=== PATIENT | female | born 2000 | race African-American/Black ===

== ENCOUNTER 2022-03-05 17:37 | Inpatient (IN) ==
--- NOTE | 2022-03-05 18:14 | Emergency Department Note ---
Impression & Plan Suicide attempt by multiple drug overdose, Depression ED Provider Note NAME: BARNEY MORRIS AGE: 21 SEX: F : 2000 ARRIVES VIA: Walk-In INFORMANT: Patient, the patient's mother ED PROVIDER(S): Misael Cervantes DO CHIEF COMPLAINT: Overdose HPI: The patient is a 21-year-old female who presented to the emergency department with her mother for an evaluation after an overdose. The patient took medications in attempt to hurt her self. This occurred approximately 2 PM today. She is been very depressed recently. She had a recent break-up with her boyfriend 2 days ago but she states this is not the reason she has been depressed. She states that everybody is "judging me". She is very depressed. She said no history of suicidal homicidal ideation in the past. She has had no nausea or vomiting since the episode. She is had no fever. She is been well recently otherwise. She does have a job and has been going to her job. She als o states she has had significant insomnia. She is never had a mental health admission before. She does have a psychiatrist. ROS: See above HPI for pertinent positives & negatives. A total of 10 systems reviewed and were otherwise negative. PAST MEDICAL HISTORY: See Below PAST SURGICAL HISTORY: See Below FAMILY HISTORY: See Below SOCIAL HISTORY: See Below HOME MEDICATIONS: See Below ALLERGIES: See Below VITALS: See Below PHYSICAL EXAMINATION: GENERAL: The patient is awake and alert. She is nonanxious appearing. EYES: The conjunctivae are clear. The pupils are round and reactive. EARS, NOSE, MOUTH AND THROAT: The nose is without any evidence of any deformity. NECK: The neck is nontender and supple. RESPIRATORY: Normal respiratory effort is noted there is no evidence of wheezing rhonchi or rales CARDIOVASCULAR: Regular rate and rhythm noted there no murmurs rubs or gallops normal S1 normal S2. GASTROINTESTINAL: The abdomen is soft. Abdomen is nontender. MUSCULOSKELETAL/EXTREMITIES: There is no evidence of gross deformity full range of motion is noted in the hips and shoulders. SKIN: There is no obvious evidence of any rash. There are no petechiae, pallor or cyanosis noted. NEUROLOGIC: Patient is awake alert and oriented x3 strength is symmetric patellar reflexes are 2+ bilaterally PSYCH: The patient's affect is very flat. She makes poor eye contact. The patient is admitting to thoughts of harming herself and admits to taking the medications in attempt to hurt her self. MEDICAL DECISION MAKING: The patient is a 21-year-old female who presented to the emergency department for an evaluation of mental health issues. The patient took an overdose of prescription medications. The patient was reevaluated multiple times. I did discuss patient's condition with the [facility] Control [facility]. They were observed for a period of time in the emergency department. Repeat EKG was very reassuring. The patient was medically cleared in the emergency department. She was evaluated by the mental health porter sample case. Currently evaluation is underway. Likely patient will be a good candidate for inpatient management. Triage Nursing notes reviewed. Prior medical records reviewed Vital Signs: reviewed and remarkable for no significant abnormalities Differential diagnosis: Mood disorder, infection, hypoglycemia, electrolyte abnormalities, cardiac sources, intracerebral event, toxicologic, trauma, neurologic, as well as other pathologies. ER treatment provided: See below Diagnostics interpreted by me: ECG: EKG was obtained in the emergency department. My interpretation is normal sinus rhythm at 94 bpm. There is no ectopy. There is no acute ST segment abnormalities noted. QTc was 465. QRS duration was 82 ms. A second EKG was obtained in the emergency department. My interpretation is normal sinus rhythm at 90 bpm. There is no ectopy. There is no acute ST segment abnormalities noted. QRS duration was 82 ms. QTc was 457 ms. This represents no significant change compared to the earlier tracing. Laboratory studies: As stated above and show below. Imaging studies: See below. Consultation(s): The case was discussed with poison control. They recommend a 5 to 6-hour observation from the time of the overdose. The patient was evaluated by the delegate from [facility]. She was felt to be a good candidate for inpatient management. Past Med/Surg History Medical History ADHD GERD (gastroesophageal reflux disease) PTSD (post-traumatic stress disorder) Social History Smoking Status: Unknown if ever smoked Preferred Language: Serbian Feels Safe at Home: Yes Gender Identity: Female Home Meds Home Medications Medication Instructions Recorded Confirmed atomoxetine 100 mg capsule 100 mg PO QAM 03/05/22 03/05/22 (Strattera) omeprazole 20 mg capsule,delayed 20 mg PO DAILY 03/05/22 03/05/22 release Results & Data (ED) Vital Signs Vital Signs - 24 hr 03/05/22 17:39 03/05/22 18:15 03/05/22 20:16 Temperature 36.9 C Temperature Source Temporal Artery Scan Pulse Rate 117 H Pulse Rate [Right Finger] 99 H Respiratory Rate 16 22 Blood Pressure 128/80 Blood Pressure [Right Arm] 125/76 Blood Pressure Mean 96 Blood Pressure Mean [Right Arm] 92 Blood Pressure Position [Right Arm] Lying Pulse Oximetry 99 98 98 Oxygen Delivery Method Room Air Room Air Oxygen Flow Rate 0 Sepsis Recent Fever Within 48 Hours No Sepsis New/Unexplained Change in Mental Status N/A Sepsis Action Taken by Nursing No Action Required Home Medications Current Medication List: was personally reviewed by me Laboratory Data Attestation: I reviewed the patient's lab results. 03/05/22 18:10 03/05/22 18:10 Lab Results 03/05/22 03/05/22 03/05/22 Range/Units 18:00 18:00 18:00 WBC (4.8-10.8) K/ul RBC (3.93-5.22) M/uL Hgb (12.0-16.0) g/dl Hct (34.1-44.9) % MCV (80.0-100.0) fL MCH (25.0-34.0) pg MCHC (32.0-36.0) g/dL RDW Std Deviation (36.4-46.3) fL RDW Coeff of Radha (11.5-14.5) % Plt Count (130-400) K/uL MPV (9.4-12.3) fL Immature Gran % (Auto) % Neut % (Auto) % Lymph % (Auto) % [place] % (Auto) % Eos % (Auto) % Baso % (Auto) % Neut # (Auto) (1.4-6.5) K/uL Lymph # (Auto) (1.2-3.4) K/uL [place] # (Auto) (0.24-0.82) K/uL Eos # (Auto) (0-0.50) K/uL Baso # (Auto) (0-0.2) K/uL Immature Gran # (Auto) (0.00-0.02) K/uL Sodium (136-145) mmol/L Potassium (3.5-5.1) mmol/L Chloride (98-107) mmol/L Carbon Dioxide (21-32) mmol/L Anion Gap (3-11) BUN (6-23) mg/dl Creatinine (0.6-1.2) mg/dl Est Cr Clr Drug Dosing ml/min Est GFR ( Amer) ml/min Est GFR (Non-Af Amer) ml/min BUN/Creatinine Ratio (10-20) Glucose (70-99(Fasting)) mg/dl Calcium (8.5-10.1) mg/dl Total Bilirubin (0.2-1.0) mg/dl AST (13-39) U/L ALT (7-52) U/L Alkaline Phosphatase (34-104) U/L Total Protein (6.0-8.3) gm/dl Albumin (3.4-5.0) gm/dl Globulin (2.5-4.0) gm/dl Albumin/Globulin Ratio (0.9-2) TSH (0.300-4.500) uIu/ml HCG, Qual (Negative) Urine Color Dark Yellow Urine Appearance Clear (Clear) Urine pH 6.0 (4.5-7.5) Ur Specific [place] 1.034 H (1.000-1.030) Urine Protein Trace H (Negative) Urine Glucose (UA) Negative (Negative) Urine Ketones Trace H (Negative) Urine Blood Negative (Negative) Urine Nitrite Negative (Negative) Urine Bilirubin Negative (Negative) Urine Urobilinogen Negative (Negative) Ur Leukocyte Esterase Negative (Negative) Urine WBC (Auto) 5-10 H (0-5) /hpf Urine RBC (Auto) 0-4 (0-4) /hpf U Hyaline Cast (Auto) 1-5 (0-5) /lpf U Epithel Cells (Auto) >30 H (0-5) /lpf Urine Bacteria (Auto) Negative (Negative) POC Ur Test NEG (NEG) Salicylates (3.0-30) mg/dl Urine Opiates Screen Pos H (Neg) Ur Methadone, Qual Neg (Neg) Acetaminophen (10-30) ug/ml Urine Barbiturates Neg (Neg) Ur Phencyclidine (PCP) Neg (Neg) U Amphetamin/Meth Scrn Neg (Neg) MDMA (Ecstasy) Screen Neg (Neg) U Benzodiazepines Scrn Neg (Neg) Ur Cocaine Metabolite Neg (Neg) U Marijuana (THC) Screen Neg (Neg) Ethyl Alcohol mg/dL (<10.0) mg/dl SARS-CoV-2, RNA, NAAT (NEGATIVE) 03/05/22 03/05/22 03/05/22 Range/Units 18:10 18:10 18:10 WBC 8.36 (4.8-10.8) K/ul RBC 4.55 (3.93-5.22) M/uL Hgb 12.5 (12.0-16.0) g/dl Hct 38.8 (34.1-44.9) % MCV 85.3 (80.0-100.0) fL MCH 27.5 (25.0-34.0) pg MCHC 32.2 (32.0-36.0) g/dL RDW Std Deviation 40.4 (36.4-46.3) fL RDW Coeff of Radha 13.0 (11.5-14.5) % Plt Count 228 (130-400) K/uL MPV 10.8 (9.4-12.3) fL Immature Gran % (Auto) 0.2 % Neut % (Auto) 73.6 % Lymph % (Auto) 21.3 % [place] % (Auto) 3.3 % Eos % (Auto) 1.1 % Baso % (Auto) 0.5 % Neut # (Auto) 6.15 (1.4-6.5) K/uL Lymph # (Auto) 1.78 (1.2-3.4) K/uL [place] # (Auto) 0.28 (0.24-0.82) K/uL Eos # (Auto) 0.09 (0-0.50) K/uL Baso # (Auto) 0.04 (0-0.2) K/uL Immature Gran # (Auto) 0.02 (0.00-0.02) K/uL Sodium 137 (136-145) mmol/L Potassium 3.8 (3.5-5.1) mmol/L Chloride 107 (98-107) mmol/L Carbon Dioxide 25 (21-32) mmol/L Anion Gap 5 (3-11) BUN 12 (6-23) mg/dl Creatinine 0.66 (0.6-1.2) mg/dl Est Cr Clr Drug Dosing 108.3 ml/min Est GFR ( Amer) 145.3 ml/min Est GFR (Non-Af Amer) 125.4 ml/min BUN/Creatinine Ratio 18.2 (10-20) Glucose 91 (70-99(Fasting)) mg/dl Calcium 9.0 (8.5-10.1) mg/dl Total Bilirubin 0.7 (0.2-1.0) mg/dl AST 9 L (13-39) U/L ALT 7 (7-52) U/L Alkaline Phosphatase 64 (34-104) U/L Total Protein 7.8 (6.0-8.3) gm/dl Albumin 4.8 (3.4-5.0) gm/dl Globulin 3.0 (2.5-4.0) gm/dl Albumin/Globulin Ratio 1.6 (0.9-2) TSH 1.520 (0.300-4.500) uIu/ml HCG, Qual (Negative) Urine Color Urine Appearance (Clear) Urine pH (4.5-7.5) Ur Specific [place] (1.000-1.030) Urine Protein (Negative) Urine Glucose (UA) (Negative) Urine Ketones (Negative) Urine Blood (Negative) Urine Nitrite (Negative) Urine Bilirubin (Negative) Urine Urobilinogen (Negative) Ur Leukocyte Esterase (Negative) Urine WBC (Auto) (0-5) /hpf Urine RBC (Auto) (0-4) /hpf U Hyaline Cast (Auto) (0-5) /lpf U Epithel Cells (Auto) (0-5) /lpf Urine Bacteria (Auto) (Negative) POC Ur Test (NEG) Salicylates (3.0-30) mg/dl Urine Opiates Screen (Neg) Ur Methadone, Qual (Neg) Acetaminophen (10-30) ug/ml Urine Barbiturates (Neg) Ur Phencyclidine (PCP) (Neg) U Amphetamin/Meth Scrn (Neg) MDMA (Ecstasy) Screen (Neg) U Benzodiazepines Scrn (Neg) Ur Cocaine Metabolite (Neg) U Marijuana (THC) Screen (Neg) Ethyl Alcohol mg/dL (<10.0) mg/dl SARS-CoV-2, RNA, NAAT (NEGATIVE) 03/05/22 03/05/22 03/05/22 Range/Units 18:10 18:10 18:10 WBC (4.8-10.8) K/ul RBC (3.93-5.22) M/uL Hgb (12.0-16.0) g/dl Hct (34.1-44.9) % MCV (80.0-100.0) fL MCH (25.0-34.0) pg MCHC (32.0-36.0) g/dL RDW Std Deviation (36.4-46.3) fL RDW Coeff of Radha (11.5-14.5) % Plt Count (130-400) K/uL MPV (9.4-12.3) fL Immature Gran % (Auto) % Neut % (Auto) % Lymph % (Auto) % [place] % (Auto) % Eos % (Auto) % Baso % (Auto) % Neut # (Auto) (1.4-6.5) K/uL Lymph # (Auto) (1.2-3.4) K/uL [place] # (Auto) (0.24-0.82) K/uL Eos # (Auto) (0-0.50) K/uL Baso # (Auto) (0-0.2) K/uL Immature Gran # (Auto) (0.00-0.02) K/uL Sodium (136-145) mmol/L Potassium (3.5-5.1) mmol/L Chloride (98-107) mmol/L Carbon Dioxide (21-32) mmol/L Anion Gap (3-11) BUN (6-23) mg/dl Creatinine (0.6-1.2) mg/dl Est Cr Clr Drug Dosing ml/min Est GFR ( Amer) ml/min Est GFR (Non-Af Amer) ml/min BUN/Creatinine Ratio (10-20) Glucose (70-99(Fasting)) mg/dl Calcium (8.5-10.1) mg/dl Total Bilirubin (0.2-1.0) mg/dl AST (13-39) U/L ALT (7-52) U/L Alkaline Phosphatase (34-104) U/L Total Protein (6.0-8.3) gm/dl Albumin (3.4-5.0) gm/dl Globulin (2.5-4.0) gm/dl Albumin/Globulin Ratio (0.9-2) TSH (0.300-4.500) uIu/ml HCG, Qual Negative (Negative) Urine Color Urine Appearance (Clear) Urine pH (4.5-7.5) Ur Specific [place] (1.000-1.030) Urine Protein (Negative) Urine Glucose (UA) (Negative) Urine Ketones (Negative) Urine Blood (Negative) Urine Nitrite (Negative) Urine Bilirubin (Negative) Urine Urobilinogen (Negative) Ur Leukocyte Esterase (Negative) Urine WBC (Auto) (0-5) /hpf Urine RBC (Auto) (0-4) /hpf U Hyaline Cast (Auto) (0-5) /lpf U Epithel Cells (Auto) (0-5) /lpf Urine Bacteria (Auto) (Negative) POC Ur Test (NEG) Salicylates < 3.0 L (3.0-30) mg/dl Urine Opiates Screen (Neg) Ur Methadone, Qual (Neg) Acetaminophen < 3 L (10-30) ug/ml Urine Barbiturates (Neg) Ur Phencyclidine (PCP) (Neg) U Amphetamin/Meth Scrn (Neg) MDMA (Ecstasy) Screen (Neg) U Benzodiazepines Scrn (Neg) Ur Cocaine Metabolite (Neg) U Marijuana (THC) Screen (Neg) Ethyl Alcohol mg/dL < 10.0 (<10.0) mg/dl SARS-CoV-2, RNA, NAAT (NEGATIVE) 03/05/22 Range/Units 18:10 WBC (4.8-10.8) K/ul RBC (3.93-5.22) M/uL Hgb (12.0-16.0) g/dl Hct (34.1-44.9) % MCV (80.0-100.0) fL MCH (25.0-34.0) pg MCHC (32.0-36.0) g/dL RDW Std Deviation (36.4-46.3) fL RDW Coeff of Radha (11.5-14.5) % Plt Count (130-400) K/uL MPV (9.4-12.3) fL Immature Gran % (Auto) % Neut % (Auto) % Lymph % (Auto) % [place] % (Auto) % Eos % (Auto) % Baso % (Auto) % Neut # (Auto) (1.4-6.5) K/uL Lymph # (Auto) (1.2-3.4) K/uL [place] # (Auto) (0.24-0.82) K/uL Eos # (Auto) (0-0.50) K/uL Baso # (Auto) (0-0.2) K/uL Immature Gran # (Auto) (0.00-0.02) K/uL Sodium (136-145) mmol/L Potassium (3.5-5.1) mmol/L Chloride (98-107) mmol/L Carbon Dioxide (21-32) mmol/L Anion Gap (3-11) BUN (6-23) mg/dl Creatinine (0.6-1.2) mg/dl Est Cr Clr Drug Dosing ml/min Est GFR ( Amer) ml/min Est GFR (Non-Af Amer) ml/min BUN/Creatinine Ratio (10-20) Glucose (70-99(Fasting)) mg/dl Calcium (8.5-10.1) mg/dl Total Bilirubin (0.2-1.0) mg/dl AST (13-39) U/L ALT (7-52) U/L Alkaline Phosphatase (34-104) U/L Total Protein (6.0-8.3) gm/dl Albumin (3.4-5.0) gm/dl Globulin (2.5-4.0) gm/dl Albumin/Globulin Ratio (0.9-2) TSH (0.300-4.500) uIu/ml HCG, Qual (Negative) Urine Color Urine Appearance (Clear) Urine pH (4.5-7.5) Ur Specific [place] (1.000-1.030) Urine Protein (Negative) Urine Glucose (UA) (Negative) Urine Ketones (Negative) Urine Blood (Negative) Urine Nitrite (Negative) Urine Bilirubin (Negative) Urine Urobilinogen (Negative) Ur Leukocyte Esterase (Negative) Urine WBC (Auto) (0-5) /hpf Urine RBC (Auto) (0-4) /hpf U Hyaline Cast (Auto) (0-5) /lpf U Epithel Cells (Auto) (0-5) /lpf Urine Bacteria (Auto) (Negative) POC Ur Test (NEG) Salicylates (3.0-30) mg/dl Urine Opiates Screen (Neg) Ur Methadone, Qual (Neg) Acetaminophen (10-30) ug/ml Urine Barbiturates (Neg) Ur Phencyclidine (PCP) (Neg) U Amphetamin/Meth Scrn (Neg) MDMA (Ecstasy) Screen (Neg) U Benzodiazepines Scrn (Neg) Ur Cocaine Metabolite (Neg) U Marijuana (THC) Screen (Neg) Ethyl Alcohol mg/dL (<10.0) mg/dl SARS-CoV-2, RNA, NAAT NEGATIVE (NEGATIVE) Discharge Plan Visit Data Chief Complaint: Mental Health Evaluation Stated Complaint: OVERDOSE, INTENTIONAL ED Provider: Misael Cervantes Discharge Problem: Suicide attempt by multiple drug overdose, Depression Patient Disposition: Admitted As Inpatient Discharge Instructions Interventions: ED Discharge Assessment Last Done: 03/05/22 22:11 : Suicide attempt by multiple drug overdose Qualifiers: Encounter type: initial encounter Qualified Code(s): T50.912A - Poisoning by multiple unspecified drugs, medicaments and biological substances, intentional self-harm, initial encounter Depression Qualifiers: Depression Type: unspecified Qualified Code(s): F32.A - Depression, unspecified
[2022-03-05 18:24] LABS: Appearance Urine Clear (Clear); Bacteria Urine Automated Negative (Negative); Bilirubin Urine Negative (Negative); Blood Urine Negative (Negative); Color Urine Dark Yellow; Epithelial Cell Urine Auto >30 /lpf (0-5); Glucose Urine UA Negative (Negative); Ketones Urine Trace (Negative); Leukocyte Esterase Urine Negative (Negative); Nitrite Urine Negative (Negative); Protein Urine Trace (Negative); RBC Urine Automated 0-4 /hpf (0-4); Specific Gravity Urine 1.034 (1.000-1.030); Urobilinogen Urine Negative (Negative)
[2022-03-05 18:24] LABS: Basophils # (auto) 0.04 K/uL (0-0.2); Basophils % (auto) 0.5 %; Eosinophils # (auto) 0.09 K/uL (0-0.50); Eosinophils % (auto) 1.1 %; Hematocrit (blood only) 38.8 % (34.1-44.9); Hemoglobin 12.5 g/dl (12.0-16.0); Immature Granulocytes # (auto) 0.02 K/uL (0.00-0.02); Immature Granulocytes % (auto) 0.2 %; Lymphocytes # (auto) 1.78 K/uL (1.2-3.4); Lymphocytes % (auto) 21.3 %; Mean Corpuscular Hemoglobin 27.5 pg (25.0-34.0); Mean Corpuscular Hgb Conc 32.2 g/dL (32.0-36.0); Mean Corpuscular Volume 85.3 fL (80.0-100.0); Mean Platelet Volume 10.8 fL (9.4-12.3); Monocytes # (auto) 0.28 K/uL (0.24-0.82); Monocytes % (auto) 3.3 %; Neutrophils # (auto) 6.15 K/uL (1.4-6.5); Neutrophils % (auto) 73.6 %; Platelet Count 228 K/uL (130-400); RDW Standard Deviation 40.4 fL (36.4-46.3); Red Blood Count 4.55 M/uL (3.93-5.22); White Blood Count 8.36 K/ul (4.8-10.8)
[2022-03-05 18:41] LABS: Pregnancy Test, Serum Negative (Negative)
[2022-03-05 18:43] LABS: Acetaminophen < 3 ug/ml (10-30); Albumin Globulin Ratio 1.6 (0.9-2); Albumin Level 4.8 gm/dl (3.4-5.0); BUN Creatinine Ratio 18.2 (10-20); Bilirubin,Total 0.7 mg/dl (0.2-1.0); Creatinine Clr Calc Pharmacy 108.3 ml/min; Est GFR (African American) 145.3 ml/min; Est GFR (Non-African American) 125.4 ml/min; Potassium 3.8 mmol/L (3.5-5.1); Salicylate < 3.0 mg/dl (3.0-30); Total Protein 7.8 gm/dl (6.0-8.3)
[2022-03-05 18:53] LABS: Amphetamines+Metham, Urine Neg (Neg); Barbiturates, Urine Neg (Neg); Benzodiazepine, Urine Neg (Neg); Cocaine, Urine Neg (Neg); MDMA (Ecstacy), Urine Neg (Neg); Methadone, Urine Neg (Neg); Opiate, Urine Pos (Neg); Phencyclidine, Urine Neg (Neg)
[2022-03-05] MEDS ORDERED: ACETAMINOPHEN 325 MG TAB PO PRN (21:49)
[2022-03-05] MEDS ORDERED: BISMUTH SUBSALICYLATE LIQD 236 ML PO PRN (21:49)
[2022-03-05] MEDS ORDERED: SODIUM CHLORIDE 0.65% NA SOLN 45 ML (OCEAN) PRN (21:49)
[2022-03-05] MEDS ORDERED: MAGNESIUM HYDROXIDE SUSP 30 ML UDC PO PRN (21:49)
[2022-03-05] MEDS ORDERED: ALUMINUM/MAGNESIUM SUSP 30 ML UDC PO PRN (21:49)
[2022-03-05] MEDS ORDERED: hydrOXYzine HCl 25 MG TAB PO PRN ×2 (21:49)
--- NOTE | 2022-03-06 10:51 | History & Physical ---
Date of Service March 06, 2022 Impression / Recommendations Impression Barney is a 21 year old with a history of ADHD, ASD and PTSD who was admitted for worsening depression and suicide attempt in the context of recent breakup, increased stress and an argument with her mother. Diagnostically consistent with major depressive disorder with anxious features as well as PTSD and social anxiety. She is deemed unstable and requires psychiatric hospitalization for diagnostic clarification, safety and stabilization, medication management and development of further coping skills. Will hold Strattera for now given overdose. Likely consider SSRI versus Wellbutrin trial. (1) Suicide attempt by multiple drug overdose: Encounter type: initial encounter Qualified Code(s): T50.912A - Poisoning by multiple unspecified drugs, medicaments and biological substances, intentional self-harm, initial encounter (2) Major depression: (3) Post traumatic stress disorder (PTSD): (4) ADHD: (5) Autism spectrum disorder: Plan 03/06/2022: The patient was admitted to the [facility] ([facility] mental health unit) on q15 min checks (behavioral with suicide precautions) for safety. The patient will participate in group, recreational, and milieu therapies and will be offered additional individual and family sessions as clinically appropriate. -Consider SSRI vs Wellbutrin -Coordinate with Dr. Baxter -Request [facility] records to confirm any prior medication trials Inventory Assets Strengths: supportive relationships, willing to get treatment, good rapport with her outpatient psychiatrist Needs: safety and stabilization, medication adjustment, additional coping skills, increased outpatient services Suicide Risk Level Suicide Risk Level: High-Moderate (q15 min suicide checks) (severe depression with suicide attempt prior to admission but feels safe in the hospital, able to safety contract and agrees to let nursing/staff know should they develop plan, i ntent or feel unable to remain safe. 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 Chief Complaint "I'm basically overthinking too much on things and pushing myself too hard". History of Present Illness Barney presents for psychiatric admission for worsening depression and suicide attempt via overdose of ~6 tabs of Strattera and ~3 tabs of omeprazole as well as self-harming via cutting her arm with a knife. She broke up with her boyfri end 2 days ago and wonders if this in combination with too much stress and arguing with her mom lead to the attempt. She recalls having "visions" of jumping out of her boyfriend's car, or cutting herself or taking medications which started yesterday. The suicide thoughts and plans came on abruptly as she's never had these thoughts before. She recalls "a feeling of being cornered and all these emotions all at once". She had looked up what might happen if she took a bunch of her medications but denies finding or thinking that it could kill her. She recalls watching TV and then her mother yelled at her for having the candy bag on the ground where the dog could get it and then "that's when I had the visions" and cut herself with a kitchen knife and took the medications noting "I just acted and didn't think about taking them". After taking them she laid down and then texted her mom when she felt ill and came to the ED. She hasn't felt like herself recently, with anhedonia and more "walker". She identifies worsening mood over the last few months with hopelessness, lack of motivation, low energy, changes in sleep (excessive alternating with insomnia), decreased appetite, and increased irritability. She's also felt more anxious recently and worries about what other people think about her and "things I'm doing wrong". Expands that she doesn't feel like she's doing enough. Endorses so cial anxiety. No history of panic attacks. She is currently prescribed any Strattera for ADHD for a few years. She thinks it works "ok" and helps with concentration. Psychiatric ROS notable for no current nor history of symptoms of phil, psychosis, OCD, eating disorder nor self-harm. Past Psychiatric History Current Psychiatric Diagnosis: PTSD, ADHD, ASD Outpatient Services: Dr. baxter at [facility] for psychiatry, hx therapy last 1 year ago but not currently Previous Psych Admissions: n/a Do You Have Access To A Gun?: No History of Previous Suicide Attempt: No Past Medication Trials: she can't remember any except Strattera Past Head Trauma/Neuro History History of Concussion/Seizure: No Allergies Allergy/AdvReac Type Severity Reaction Status Date / Time No Known Allergies Allergy Verified 03/06/22 10:35 Home Medications Medication Instructions Recorded Confirmed Type atomoxetine 100 mg capsule 100 mg PO QAM 03/05/22 03/05/22 History (Strattera) omeprazole 20 mg capsule,delayed 20 mg PO DAILY 03/05/22 03/05/22 History release Family History Family History of: Doesn't Know (adopted) Alcohol History Hx of Alcohol Use Over the Past 12 Months: No AUDIT Total Score: 0 Smoking Use Have You Smoked or Used Tobacco Products in the Last 30 Days: No Smoking Status: Never smoker Substance History Hx of Prescription Med Misuse Over the Past 12 Months: Yes (Overdosed on her medications today) Hx of Over the Counter Med Misuse Over the Past 12 Months: No Hx of Inhalent Misuse Over the Past 12 Months: No Hx of Organic Substance Use Over the Past 12 Months: No Hx of Illegal Substances/Street Drug Use Over Past 12 Months: No Problems as a Result of Past Substance Use: Attempted Suicide Personal History Living Arrangements: Home Childhood: 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 Has a good relationship with her adoptive parents. 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 Required: No Beliefs That Will Affect Care: None Feels Safe at Home: Yes Gender Identity: Female Assistive Devices: Glasses Review of Systems Review of Systems: All systems reviewed & are unremarkable except as noted in HPI & below Physical Exam Psychiatric: Orientation: alert and oriented x 3 Apperance: appropriately dressed and appropriately groomed Eye Contact: + fair eye contact Motor Behavior: no abnormal motor movements Speech: + abnormal rate/rhythm/volume of speech (soft, brief) Affect: + depressed affect and + anxious affect Mood: + depressed mood and + anxious mood Thought Process: goal directed thought process Thought Content: reality based without delusions Suicidal Thoughts: denies suicidal plan and denies suicidal intent; + reports suicidal thoughts (denies currently but s/p suicide attempt) Homicidal Thoughts: denies homicidal thoughts Hallucinations: no auditory hallucinations and no visual hallucinations Cognition: recent memory grossly intact, remote memory grossly intact, attention grossly intact and language grossly intact Estimated Intelligence: consistent with education level Insight: + limited insight Judgement: + limited judgement Vital Signs (Past 24 Hours): Last Vital Signs Temp 36.8 C 03/06/22 06:43 Pulse 120 H 03/06/22 06:44 Resp 16 03/06/22 06:43 BP 144/82 H 03/06/22 06:44 Pulse Ox 99 03/05/22 22:28 O2 Del Method 03/05/22 22:28 O2 Flow Rate 0 03/05/22 18:15 Exam Statement: A physical exam was performed in the ED by Dr. Cervantes for the purposes of medical clearance. I accept that physical as correct and adequate for the purposes of the inpatient physical exam. Results & Data ([facility]) Laboratory Results Laboratory Results - last 24 hr 03/05/22 03/05/22 03/05/22 18:00 18:00 18:00 WBC RBC Hgb Hct MCV MCH MCHC RDW Std Deviation RDW Coeff of Radha Plt Count MPV Immature Gran % (Auto) Neut % (Auto) Lymph % (Auto) [place] % (Auto) Eos % (Auto) Baso % (Auto) Neut # (Auto) Lymph # (Auto) [place] # (Auto) Eos # (Auto) Baso # (Auto) Immature Gran # (Auto) Sodium Potassium Chloride Carbon Dioxide Anion Gap BUN Creatinine Est Cr Clr Drug Dosing Est GFR ( Amer) Est GFR (Non-Af Amer) BUN/Creatinine Ratio Glucose Calcium Total Bilirubin AST ALT Alkaline Phosphatase Total Protein Albumin Globulin Albumin/Globulin Ratio TSH HCG, Qual Urine Color Dark Yellow Urine Appearance Clear Urine pH 6.0 Ur Specific [place] 1.034 H Urine Protein Trace H Urine Glucose (UA) Negative Urine Ketones Trace H Urine Blood Negative Urine Nitrite Negative Urine Bilirubin Negative Urine Urobilinogen Negative Ur Leukocyte Esterase Negative Urine WBC (Auto) 5-10 H Urine RBC (Auto) 0-4 U Hyaline Cast (Auto) 1-5 U Epithel Cells (Auto) >30 H Urine Bacteria (Auto) Negative POC Ur Test NEG Salicylates Urine Opiates Screen Pos H U Codeine Confrm GC/MS Ur Morphine (GC/MS) Ur Hydrocodone (GC/MS) Ur Norhydrocodone Ur Noroxycodone Urine Oxycodone (GC/MS) U Oxymorphone GC/MS Ur Methadone, Qual Neg Ur Hydromorphone (GC/MS) Acetaminophen Urine Barbiturates Neg Ur Phencyclidine (PCP) Neg U Amphetamin/Meth Scrn Neg MDMA (Ecstasy) Screen Neg U Benzodiazepines Scrn Neg Ur Cocaine Metabolite Neg U Marijuana (THC) Screen Neg Drug Screen Comment Ethyl Alcohol mg/dL SARS-CoV-2, RNA, NAAT 03/05/22 03/05/22 03/05/22 18:00 18:10 18:10 WBC 8.36 RBC 4.55 Hgb 12.5 Hct 38.8 MCV 85.3 MCH 27.5 MCHC 32.2 RDW Std Deviation 40.4 RDW Coeff of Radha 13.0 Plt Count 228 MPV 10.8 Immature Gran % (Auto) 0.2 Neut % (Auto) 73.6 Lymph % (Auto) 21.3 [place] % (Auto) 3.3 Eos % (Auto) 1.1 Baso % (Auto) 0.5 Neut # (Auto) 6.15 Lymph # (Auto) 1.78 [place] # (Auto) 0.28 Eos # (Auto) 0.09 Baso # (Auto) 0.04 Immature Gran # (Auto) 0.02 Sodium 137 Potassium 3.8 Chloride 107 Carbon Dioxide 25 Anion Gap 5 BUN 12 Creatinine 0.66 Est Cr Clr Drug Dosing 108.3 Est GFR ( Amer) 145.3 Est GFR (Non-Af Amer) 125.4 BUN/Creatinine Ratio 18.2 Glucose 91 Calcium 9.0 Total Bilirubin 0.7 AST 9 L ALT 7 Alkaline Phosphatase 64 Total Protein 7.8 Albumin 4.8 Globulin 3.0 Albumin/Globulin Ratio 1.6 TSH HCG, Qual Urine Color Urine Appearance Urine pH Ur Specific [place] Urine Protein Urine Glucose (UA) Urine Ketones Urine Blood Urine Nitrite Urine Bilirubin Urine Urobilinogen Ur Leukocyte Esterase Urine WBC (Auto) Urine RBC (Auto) U Hyaline Cast (Auto) U Epithel Cells (Auto) Urine Bacteria (Auto) POC Ur Test Salicylates Urine Opiates Screen U Codeine Confrm GC/MS Pending Ur Morphine (GC/MS) Pending Ur Hydrocodone (GC/MS) Pending Ur Norhydrocodone Pending Ur Noroxycodone Pending Urine Oxycodone (GC/MS) Pending U Oxymorphone GC/MS Pending Ur Methadone, Qual Ur Hydromorphone (GC/MS) Pending Acetaminophen Urine Barbiturates Ur Phencyclidine (PCP) U Amphetamin/Meth Scrn MDMA (Ecstasy) Screen U Benzodiazepines Scrn Ur Cocaine Metabolite U Marijuana (THC) Screen Drug Screen Comment Pending Ethyl Alcohol mg/dL SARS-CoV-2, RNA, NAAT 03/05/22 03/05/22 03/05/22 18:10 18:10 18:10 WBC RBC Hgb Hct MCV MCH MCHC RDW Std Deviation RDW Coeff of Radha Plt Count MPV Immature Gran % (Auto) Neut % (Auto) Lymph % (Auto) [place] % (Auto) Eos % (Auto) Baso % (Auto) Neut # (Auto) Lymph # (Auto) [place] # (Auto) Eos # (Auto) Baso # (Auto) Immature Gran # (Auto) Sodium Potassium Chloride Carbon Dioxide Anion Gap BUN Creatinine Est Cr Clr Drug Dosing Est GFR ( Amer) Est GFR (Non-Af Amer) BUN/Creatinine Ratio Glucose Calcium Total Bilirubin AST ALT Alkaline Phosphatase Total Protein Albumin Globulin Albumin/Globulin Ratio TSH 1.520 HCG, Qual Urine Color Urine Appearance Urine pH Ur Specific [place] Urine Protein Urine Glucose (UA) Urine Ketones Urine Blood Urine Nitrite Urine Bilirubin Urine Urobilinogen Ur Leukocyte Esterase Urine WBC (Auto) Urine RBC (Auto) U Hyaline Cast (Auto) U Epithel Cells (Auto) Urine Bacteria (Auto) POC Ur Test Salicylates < 3.0 L Urine Opiates Screen U Codeine Confrm GC/MS Ur Morphine (GC/MS) Ur Hydrocodone (GC/MS) Ur Norhydrocodone Ur Noroxycodone Urine Oxycodone (GC/MS) U Oxymorphone GC/MS Ur Methadone, Qual Ur Hydromorphone (GC/MS) Acetaminophen < 3 L Urine Barbiturates Ur Phencyclidine (PCP) U Amphetamin/Meth Scrn MDMA (Ecstasy) Screen U Benzodiazepines Scrn Ur Cocaine Metabolite U Marijuana (THC) Screen Drug Screen Comment Ethyl Alcohol mg/dL < 10.0 SARS-CoV-2, RNA, NAAT 03/05/22 03/05/22 18:10 18:10 WBC RBC Hgb Hct MCV MCH MCHC RDW Std Deviation RDW Coeff of Radha Plt Count MPV Immature Gran % (Auto) Neut % (Auto) Lymph % (Auto) [place] % (Auto) Eos % (Auto) Baso % (Auto) Neut # (Auto) Lymph # (Auto) [place] # (Auto) Eos # (Auto) Baso # (Auto) Immature Gran # (Auto) Sodium Potassium Chloride Carbon Dioxide Anion Gap BUN Creatinine Est Cr Clr Drug Dosing Est GFR ( Amer) Est GFR (Non-Af Amer) BUN/Creatinine Ratio Glucose Calcium Total Bilirubin AST ALT Alkaline Phosphatase Total Protein Albumin Globulin Albumin/Globulin Ratio TSH HCG, Qual Negative Urine Color Urine Appearance Urine pH Ur Specific [place] Urine Protein Urine Glucose (UA) Urine Ketones Urine Blood Urine Nitrite Urine Bilirubin Urine Urobilinogen Ur Leukocyte Esterase Urine WBC (Auto) Urine RBC (Auto) U Hyaline Cast (Auto) U Epithel Cells (Auto) Urine Bacteria (Auto) POC Ur Test Salicylates Urine Opiates Screen U Codeine Confrm GC/MS Ur Morphine (GC/MS) Ur Hydrocodone (GC/MS) Ur Norhydrocodone Ur Noroxycodone Urine Oxycodone (GC/MS) U Oxymorphone GC/MS Ur Methadone, Qual Ur Hydromorphone (GC/MS) Acetaminophen Urine Barbiturates Ur Phencyclidine (PCP) U Amphetamin/Meth Scrn MDMA (Ecstasy) Screen U Benzodiazepines Scrn Ur Cocaine Metabolite U Marijuana (THC) Screen Drug Screen Comment Ethyl Alcohol mg/dL SARS-CoV-2, RNA, NAAT NEGATIVE Current Inpatient Medications Current Inpatient Medications: Current Inpatient Medications Acetaminophen (Acetaminophen 325 Mg Tab) 650 mg PO Q4H PRN PRN Reason: Headache or Minor Fever Stop: 04/04/22 21:48 Al Hydrox/Mg Hydrox/Simethicone (Aluminum/Magnesium Susp 30 Ml Udc) 30 ml PO Q4H PRN PRN Reason: GI Upset Stop: 04/04/22 21:48 Bismuth Subsalicylate (Bismuth Subsalicylate Liqd 236 Ml) 15 ml PO PRN PRN PRN Reason: Loose Stool Stop: 04/04/22 21:48 Hydroxyzine HCl (Hydroxyzine Hcl 25 Mg Tab) 50 mg PO HSZ PRN PRN Reason: Insomnia Stop: 04/04/22 21:48 Hydroxyzine HCl (Hydroxyzine Hcl 25 Mg Tab) 25 mg PO Q4H PRN PRN Reason: Anxiety Stop: 04/04/22 21:48 Magnesium Hydroxide (Magnesium Hydroxide Susp 30 Ml Udc) 30 ml PO DAILY PRN PRN Reason: Constipation Stop: 04/04/22 21:48 Sodium Chloride (Sodium Chloride 0.65% Na Soln 45 Ml ([place])) 1 - 2 sprays NA PRN PRN PRN Reason: Nasal Dryness/Congestion Stop: 04/04/22 21:48
--- NOTE | 2022-03-06 14:54 | Electrocardiogram Report ---
Test Reason : Blood Pressure : / mmHG Vent. Rate : 090 BPM Atrial Rate : 090 BPM P-R Int : 132 ms QRS Dur : 082 ms QT Int : 374 ms P-R-T Axes : 064 058 039 degrees QTc Int : 457 ms Poor data quality, interpretation may be adversely affected Normal sinus rhythm Normal ECG When compared with ECG of 05-MAR-2022 18:03, No significant change was found Confirmed by Bebo Finch ([id number]) on 03/06/2022 2:53:57 PM Referred By: REFERRED SELF Confirmed By:Bebo Finch
--- NOTE | 2022-03-06 14:54 | Electrocardiogram Report ---
Test Reason : Blood Pressure : / mmHG Vent. Rate : 094 BPM Atrial Rate : 094 BPM P-R Int : 122 ms QRS Dur : 082 ms QT Int : 372 ms P-R-T Axes : 056 048 029 degrees QTc Int : 465 ms Poor data quality, interpretation may be adversely affected Normal sinus rhythm Normal ECG When compared with ECG of 29-NOV-2012 18:13, No significant change Confirmed by Bebo Finch ([id number]) on 03/06/2022 2:53:48 PM Referred By: REFERRED SELF Confirmed By:Bebo Finch
--- NOTE | 2022-03-07 08:48 | Psychiatric Progress Note ---
Date of Service March 07, 2022 Impression / Recommendations Jose M Heard is a 21 year old with a history of ADHD, ASD and PTSD who was admitted for worsening depression and suicide attempt in the context of recent breakup, increased stress and an argument with her mother. Diagnostically consistent with major depressive disorder with anxious features as well as PTSD and social anxiety. She is deemed unstable and requires psychiatric hospitalization for diagnostic clarification, safety and stabilization, medication management and development of further coping skills. 03/07/21: Ongoing depression and anxiety but started to attend groups and less isolative today. Discussed with her outpatient provider Dr. Baxter who noted past medication trials of Trileptal, risperidone in childhood for aggressive behaviors with ASD and then stimulant trials in the past but caused activation and hx trazodone for sleep. In childhood developed prolonged QTc on risperidone but never since then. Re-reviewed EKG from ED notable for normal QTc on Strattera. Discussed medication treatment options in detail. Discussed risks, benefits and alternatives. Patient would like to start and consented to sertraline for depression and anxiety. Reviewed side effects including but not limited to: GI, DU, sexual side effects, and counseled on black box warning of potential for emergence of or increased SI and need to let staff know should this occur or should they feel unsafe. Also discussed importance of seeking emergency care following discharge if this side effect occurs in the future. Reviewed recommend that we will check EKG QTc in a few days after starting sertraline to ensure no prolongation since sertraline can cause QTc prolongation but felt to be safe given good tolerance of SNRI use with Strattera with no changes. Overall, I spent a total of 53 minutes with this case including review of EKG QTc, direct evaluation of the patient, counseling the patient, ordering medication, discussion of the patient with nurse and social work specialist at interdisciplinary rounds, discussion with her outpatient psychiatric provider and documentation in the electronic health record. (1) Suicide attempt by multiple drug overdose: (2) Major depression: (3) Post traumatic stress disorder (PTSD): (4) ADHD: (5) Autism spectrum disorder: Plan 03/07/22: Start sertraline 25mg qd. 03/06/2022: The patient was admitted to the [facility] ([facility] mental health unit) on q15 min checks (behavioral with suicide precautions) for safety. The patient will participate in group, recreational, and milieu therapies and will be offered additional individual and family sessions as clinically appropriate. -Consider SSRI vs Wellbutrin -Coordinate with Dr. Baxter -Request [facility] records to confirm any prior medication trials Inventory Assets Strengths: supportive relationships, willing to get treatment, good rapport with her outpatient psychiatrist Needs: safety and stabilization, medication adjustment, additional coping skills, increased outpatient services Suicide Risk Level Suicide Risk Level: High-Moderate (q15 min suicide checks) (severe depression with suicide attempt prior to admission but feels safe in the hospital, able to safety contract and agrees to let nursing/staff know should they develop plan, intent or feel unable to remain safe. 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 Chief Complaint "It was that the depression built over many months, it wasn't just one thing". Review of Systems Sleep Information Total Hours of Sleep: 7.5 Sleep Comments: patient denied anything to help with sleep- layed in bed awake all night Meal Information Percent Meal Consumed - Breakfast: 0 Percent Meal Consumed - Lunch: 100 Percent Meal Consumed - Dinner: 90 Subjective Subjective Patient was seen & assessed and interval progress reviewed with treatment team nursing and social work. Going to groups but not participating. Isolative to her room between groups. Reports her mood is "ok" today. Slept well last night. Interested in trying an SSRI. Adjusting to unit more, pleased her family dropped off her stuffed animal. Processed more about her relationship breakup, identified that her ex-boyfriend "made me feel like everything was my fault and I was a bad person a lot". Discussed how to identify healthy relationships and what productive arguing in relationships versus unhealthy arguing can look like. Physical Exam Psychiatric Orientation: alert and oriented x 3 Apperance: appropriately dressed and appropriately groomed Eye Contact: + poor eye contact Motor Behavior: no abnormal motor movements Speech: + abnormal rate/rhythm/volume of speech (soft, brief) Affect: + depressed affect and + anxious affect Mood: + depressed mood and + anxious mood Thought Process: goal directed thought process Thought Content: reality based without delusions Suicidal Thoughts: denies suicidal plan and denies suicidal intent; + reports suicidal thoughts (denies currently but s/p suicide attempt) Homicidal Thoughts: denies homicidal thoughts Hallucinations: no auditory hallucinations and no visual hallucinations Cognition: recent memory grossly intact, remote memory grossly intact, attention grossly intact and language grossly intact Estimated Intelligence: consistent with education level Insight: + limited insight Judgement: + limited judgement Vital Signs (Past 24 Hours) Last Vital Signs Temp 37.1 C 03/07/22 06:36 Pulse 120 H 03/07/22 06:36 Resp 16 03/07/22 06:36 BP 119/73 03/07/22 06:36 Pulse Ox 99 03/05/22 22:28 O2 Del Method 03/05/22 22:28 O2 Flow Rate 0 03/05/22 18:15 Results & Data ([facility]) Current Inpatient Medications Current Inpatient Medications: Current Inpatient Medications Acetaminophen (Acetaminophen 325 Mg Tab) 650 mg PO Q4H PRN PRN Reason: Headache or Minor Fever Stop: 04/04/22 21:48 Al Hydrox/Mg Hydrox/Simethicone (Aluminum/Magnesium Susp 30 Ml Udc) 30 ml PO Q4H PRN PRN Reason: GI Upset Stop: 04/04/22 21:48 Bismuth Subsalicylate (Bismuth Subsalicylate Liqd 236 Ml) 15 ml PO PRN PRN PRN Reason: Loose Stool Stop: 04/04/22 21:48 Hydroxyzine HCl (Hydroxyzine Hcl 25 Mg Tab) 50 mg PO HSZ PRN PRN Reason: Insomnia Stop: 04/04/22 21:48 Hydroxyzine HCl (Hydroxyzine Hcl 25 Mg Tab) 25 mg PO Q4H PRN PRN Reason: Anxiety Stop: 04/04/22 21:48 Magnesium Hydroxide (Magnesium Hydroxide Susp 30 Ml Udc) 30 ml PO DAILY PRN PRN Reason: Constipation Stop: 04/04/22 21:48 Sodium Chloride (Sodium Chloride 0.65% Na Soln 45 Ml ([place])) 1 - 2 sprays NA PRN PRN PRN Reason: Nasal Dryness/Congestion Stop: 04/04/22 21:48 Mental Health & Subst Abuse Tx Psychiatrist Name of Psychiatrist: Viridiana- Dr. Baxter Psychiatrist's Time of Appointment with Psychiatrist: 9:30am Psychiatric Appointment Comment: via Zoom Therapist Name of Therapist: Made referral to [facility] Medical Staff Services Coordinator Name of Medical Staff Services Coordinator: None Post Discharge Appointments Primary Care Physician Name Of Family Doctor/PCP: Yahir-will be seeing Dr. Carias Primary Care Time of Appointment with PCP: 10am Provider Appointment Comment: Tj Yang, [place] Contact Information Discharge Discharge Address: [facility] [address] [place] [address] (1) Suicide attempt by multiple drug overdose Encounter type: initial encounter Qualified Code(s): T50.912A - Poisoning by multiple unspecified drugs, medicaments and biological substances, intentional self-harm, initial encounter
[2022-03-07] MEDS: SERTRALINE HCL 50 MG TABLET PO SCH (12:53)
[2022-03-08] MEDS: SERTRALINE HCL 50 MG TABLET PO SCH (09:04)
--- NOTE | 2022-03-08 09:04 | Psychiatric Progress Note ---
Date of Service March 08, 2022 Impression / Recommendations Impression Barney is a 21 year old with a history of ADHD, ASD and PTSD who was admitted for worsening depression and suicide attempt in the context of recent breakup, increased stress and an argument with her mother. Diagnostically consistent with major depressive disorder with anxious features as well as PTSD and social anxiety. She is deemed unstable and requires psychiatric hospitalization for diagnostic clarification, safety and stabilization, medication management and development of further coping skills. 03/08/21: Ongoing depression and anxiety but making progress. Tolerating initiation of sertraline, consents to dose titration. Will get EKG in 1-2 days once at 50mg to assess QTc given history of prolonged QTc. Family meeting today. (1) Suicide attempt by multiple drug overdose: (2) Major depression: (3) Post traumatic stress disorder (PTSD): (4) ADHD: (5) Autism spectrum disorder: Plan 03/08/22: Increase sertraline to 50mg qd. 03/07/22: Start sertraline 25mg qd. 03/06/2022: The patient was admitted to the [facility] ([facility] mental health unit) on q15 min checks (behavioral with suicide precautions) for safety. The patient will participate in group, recreational, and milieu therapies and will be offered additional individual and family sessions as clinically appropriate. -Consider SSRI vs Wellbutrin -Coordinate with Dr. Baxter -Request [facility] records to confirm any prior medication trials Inventory Assets Strengths: supportive relationships, willing to get treatment, good rapport with her outpatient psychiatrist Needs: safety and stabilization, medication adjustment, additional coping skills, increased outpatient services Suicide Risk Level Suicide Risk Level: High-Moderate (q15 min suicide checks) (severe depression with suicide attempt prior to admission but feels safe in the hospital, able to safety contract and agrees to let nursing/staff know should they develop plan, intent or feel unable to remain safe. 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 Chief Complaint "The medication is helping a little bit". Review of Systems Sleep Information Total Hours of Sleep: 7 Sleep Comments: patient denied anything to help with sleep- layed in bed awake all night Meal Information Percent Meal Consumed - Breakfast: 0 Percent Meal Consumed - Lunch: 100 Percent Meal Consumed - Dinner: 100 Subjective Subjective Patient was seen & assessed and interval progress reviewed with treatment team nursing and social work. Mood remains with depression. Feels the medication is starting to help her a little bit with the depression. Attending groups. Denies any medication side effects, agreeable to dose titration. Family meeting today. Physical Exam Psychiatric Orientation: alert and oriented x 3 Apperance: appropriately dressed and appropriately groomed Eye Contact: + poor eye contact Motor Behavior: no abnormal motor movements Speech: + abnormal rate/rhythm/volume of speech (soft, brief) Affect: + depressed affect and + anxious affect Mood: + depressed mood and + anxious mood Thought Process: goal directed thought process Thought Content: reality based without delusions Suicidal Thoughts: denies suicidal plan and denies suicidal intent; + reports suicidal thoughts (denies currently but s/p suicide attempt) Homicidal Thoughts: denies homicidal thoughts Hallucinations: no auditory hallucinations and no visual hallucinations Cognition: recent memory grossly intact, remote memory grossly intact, attention grossly intact and language grossly intact Estimated Intelligence: consistent with education level Insight: + limited insight Judgement: + limited judgement Vital Signs (Past 24 Hours) Last Vital Signs Temp 37.1 C 03/08/22 06:29 Pulse 108 H 03/08/22 06:29 Resp 18 03/08/22 06:29 BP 117/74 03/08/22 06:31 Pulse Ox 99 03/05/22 22:28 O2 Del Method 03/05/22 22:28 O2 Flow Rate 0 03/05/22 18:15 Results & Data ([facility]) Current Inpatient Medications Current Inpatient Medications: Current Inpatient Medications Acetaminophen (Acetaminophen 325 Mg Tab) 650 mg PO Q4H PRN PRN Reason: Headache or Minor Fever Stop: 04/04/22 21:48 Al Hydrox/Mg Hydrox/Simethicone (Aluminum/Magnesium Susp 30 Ml Udc) 30 ml PO Q4H PRN PRN Reason: GI Upset Stop: 04/04/22 21:48 Bismuth Subsalicylate (Bismuth Subsalicylate Liqd 236 Ml) 15 ml PO PRN PRN PRN Reason: Loose Stool Stop: 04/04/22 21:48 Hydroxyzine HCl (Hydroxyzine Hcl 25 Mg Tab) 50 mg PO HSZ PRN PRN Reason: Insomnia Stop: 04/04/22 21:48 Hydroxyzine HCl (Hydroxyzine Hcl 25 Mg Tab) 25 mg PO Q4H PRN PRN Reason: Anxiety Stop: 04/04/22 21:48 Magnesium Hydroxide (Magnesium Hydroxide Susp 30 Ml Udc) 30 ml PO DAILY PRN PRN Reason: Constipation Stop: 04/04/22 21:48 Sertraline HCl (Sertraline Hcl 50 Mg Tablet) 25 mg PO QAM ABBEY Stop: 04/06/22 12:44 Last Admin: 03/07/22 12:53 Dose: 25 mg Sodium Chloride (Sodium Chloride 0.65% Na Soln 45 Ml ([place])) 1 - 2 sprays NA PRN PRN PRN Reason: Nasal Dryness/Congestion Stop: 04/04/22 21:48 Mental Health & Subst Abuse Tx Psychiatrist Name of Psychiatrist: Viridiana- Dr. Baxter Psychiatrist's Time of Appointment with Psychiatrist: 9:30am Psychiatric Appointment Comment: via Zoom Therapist Name of Therapist: Viridiana- on waiting list for therapy Change Consultant Name of Change Consultant: None Post Discharge Appointments Primary Care Physician Name Of Family Doctor/PCP: Yahir-will be seeing Dr. Carias Primary Care Time of Appointment with PCP: 10am Provider Appointment Comment: Tj Yang, [place] Contact Information Discharge Discharge Address: [address] [place] [address] Julian Epp[place], [place] [address] (1) Suicide attempt by multiple drug overdose Encounter type: initial encounter Qualified Code(s): T50.912A - Poisoning by multiple unspecified drugs, medicaments and biological substances, intentional self-harm, initial encounter
[2022-03-08 10:12] LABS: Codeine Urine NEGATIVE ng/mL (<50); Hydrocodone Urine NEGATIVE ng/mL (<50); Hydromor Urine NEGATIVE ng/mL (<50); Morphine Urine NEGATIVE ng/mL (<50); Norhydrocodone Conf Ur NEGATIVE ng/mL (<50); Noroxycodone Urine NEGATIVE ng/mL (<50); Oxycodone Urine NEGATIVE ng/mL (<50); Oxymorph Urine NEGATIVE ng/mL (<50)
[2022-03-09] MEDS: SERTRALINE HCL 50 MG TABLET PO SCH (08:54)
--- NOTE | 2022-03-09 16:37 | Psychiatric Progress Note ---
Date of Service March 09, 2022 Impression / Recommendations Impression Barney is a 21 year old with a history of ADHD, ASD and PTSD who was admitted for worsening depression and suicide attempt in the context of recent breakup, increased stress and an argument with her mother. Diagnostically consistent with major depressive disorder with anxious features as well as PTSD and social anxiety. She is deemed unstable and requires psychiatric hospitalization for diagnostic clarification, safety and stabilization, medication management and development of further coping skills. 03/09/21: Ongoing depression and anxiety but making gradual progress. Tolerating higher dose of sertraline today. Will get EKG in 1-2 days once at 50mg to assess QTc given history of prolonged QTc. Family meeting today. (1) Suicide attempt by multiple drug overdose: (2) Major depression: (3) Post traumatic stress disorder (PTSD): (4) ADHD: (5) Autism spectrum disorder: Plan 03/09/22: Continue with sertraline 50mg qd. 03/08/22: Increase sertraline to 50mg qd. 03/07/22: Start sertraline 25mg qd. 03/06/2022: The patient was admitted to the [facility] ([facility] mental health unit) on q15 min checks (behavioral with suicide precautions) for safety. The patient will participate in group, recreational, and milieu therapies and will be offered additional individual and family sessions as clinically appropriate. -Consider SSRI vs Wellbutrin -Coordinate with Dr. Baxter -Request [facility] records to confirm any prior medication trials Inventory Assets Strengths: supportive relationships, willing to get treatment, good rapport with her outpatient psychiatrist Needs: safety and stabilization, medication adjustment, additional coping skills, increased outpatient services Suicide Risk Level Suicide Risk Level: Moderate (q15 min suicide checks) (depression with suicide attempt prior to admission but mood improving, denies SI, feels safe in the hospital, able to safety contract and agrees to let nursing/staff know should they develop plan, intent or feel unable to remain safe. 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 Chief Complaint "The medication is helping". Review of Systems Sleep Information Total Hours of Sleep: 6.5 Sleep Comments: patient denied anything to help with sleep- layed in bed awake all night Meal Information Percent Meal Consumed - Breakfast: 0 Percent Meal Consumed - Lunch: 80 Percent Meal Consumed - Dinner: 90 Nutrition Comment: pt. does not typically eat breakfast Subjective Subjective Patient was seen & assessed and interval progress reviewed with treatment team nursing and social work. Mood slowly improving. No side effects from higher dose of sertraline today. Likes doing puzzles and attending groups but remains quiet. Discussed her job, she isn't sure about working after discharge. 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 Sleeping well. Physical Exam Psychiatric Orientation: alert and oriented x 3 Apperance: appropriately dressed and appropriately groomed Eye Contact: + poor eye contact Motor Behavior: no abnormal motor movements Speech: + abnormal rate/rhythm/volume of speech (soft, brief) Affect: + depressed affect Mood: + depressed mood and + anxious mood Thought Process: goal directed thought process Thought Content: reality based without delusions Suicidal Thoughts: denies suicidal thoughts (denies currently but s/p suicide attempt), denies suicidal plan and denies suicidal intent Homicidal Thoughts: denies homicidal thoughts Hallucinations: no auditory hallucinations and no visual hallucinations Cognition: recent memory grossly intact, remote memory grossly intact, attention grossly intact and language grossly intact Estimated Intelligence: consistent with education level Insight: + limited insight Judgement: + limited judgement Vital Signs (Past 24 Hours) Last Vital Signs Temp 37.0 C 03/09/22 06:39 Pulse 94 H 03/09/22 06:39 Resp 16 03/09/22 06:39 BP 113/76 03/09/22 06:40 Pulse Ox 98 03/09/22 06:39 O2 Del Method 03/09/22 06:39 O2 Flow Rate 0 03/05/22 18:15 Results & Data ([facility]) Current Inpatient Medications Current Inpatient Medications: Current Inpatient Medications Acetaminophen (Acetaminophen 325 Mg Tab) 650 mg PO Q4H PRN PRN Reason: Headache or Minor Fever Stop: 04/04/22 21:48 Al Hydrox/Mg Hydrox/Simethicone (Aluminum/Magnesium Susp 30 Ml Udc) 30 ml PO Q4H PRN PRN Reason: GI Upset Stop: 04/04/22 21:48 Bismuth Subsalicylate (Bismuth Subsalicylate Liqd 236 Ml) 15 ml PO PRN PRN PRN Reason: Loose Stool Stop: 04/04/22 21:48 Hydroxyzine HCl (Hydroxyzine Hcl 25 Mg Tab) 50 mg PO HSZ PRN PRN Reason: Insomnia Stop: 04/04/22 21:48 Hydroxyzine HCl (Hydroxyzine Hcl 25 Mg Tab) 25 mg PO Q4H PRN PRN Reason: Anxiety Stop: 04/04/22 21:48 Magnesium Hydroxide (Magnesium Hydroxide Susp 30 Ml Udc) 30 ml PO DAILY PRN PRN Reason: Constipation Stop: 04/04/22 21:48 Sertraline HCl (Sertraline Hcl 50 Mg Tablet) 50 mg PO QAM ABBEY Stop: 04/08/22 08:59 Last Admin: 03/09/22 08:54 Dose: 50 mg Sodium Chloride (Sodium Chloride 0.65% Na Soln 45 Ml ([place])) 1 - 2 sprays NA PRN PRN PRN Reason: Nasal Dryness/Congestion Stop: 04/04/22 21:48 Mental Health & Subst Abuse Tx Psychiatrist Name of Psychiatrist: Sonia Baxter Psychiatrist's Time of Appointment with Psychiatrist: 9:30am Psychiatric Appointment Comment: via Zoom Therapist Name of Therapist: Viridiana- on waiting list for therapy Dairy Equipment Specialist Name of Dairy Equipment Specialist: None Post Discharge Appointments Primary Care Physician Name Of Family Doctor/PCP: Yahir-will be seeing Dr. Carias Primary Care Time of Appointment with PCP: 10am Provider Appointment Comment: Tj Yang, [place] Contact Information Discharge Discharge Address: [address] [place] [address] [place], [place] [address] (1) Suicide attempt by multiple drug overdose Encounter type: initial encounter Qualified Code(s): T50.912A - Poisoning by multiple unspecified drugs, medicaments and biological substances, intentional self-harm, initial encounter
[2022-03-10] MEDS: SERTRALINE HCL 50 MG TABLET PO SCH (09:06)
--- NOTE | 2022-03-10 12:37 | Psychiatric Progress Note ---
Date of Service March 10, 2022 Impression / Recommendations Impression Barney is a 21 year old with a history of ADHD, ASD and PTSD who was admitted for worsening depression and suicide attempt in the context of recent breakup, increased stress and an argument with her mother. Diagnostically consistent with major depressive disorder with anxious features as well as PTSD and social anxiety. She is deemed unstable and requires psychiatric hospitalization for diagnostic clarification, safety and stabilization, medication management and development of further coping skills. 03/10/21: Mood is improving. Recheck EKG this evening to assess QTc and ensure it remains normal on higher dose of sertraline (now has received 2 doses of 50mg) given history of prolonged QTc during childhood while on risperidone. (1) Suicide attempt by multiple drug overdose: (2) Major depression: (3) Post traumatic stress disorder (PTSD): (4) ADHD: (5) Autism spectrum disorder: Plan 03/10/22: Continue with sertraline. EKG this evening to assess QTc. 03/09/22: Continue with sertraline 50mg qd. 03/08/22: Increase sertraline to 50mg qd. 03/07/22: Start sertraline 25mg qd. 03/06/2022: The patient was admitted to the [facility] ([facility]) on q15 min checks (behavioral with suicide precautions) for safety. The patient will participate in group, recreational, and milieu therapies and will be offered additional individual and family sessions as clinically appropriate. -Consider SSRI vs Wellbutrin -Coordinate with Dr. Baxter -Request [facility] records to confirm any prior medication trials Inventory Assets Strengths: supportive relationships, willing to get treatment, good rapport with her outpatient psychiatrist Needs: safety and stabilization, medication adjustment, additional coping skills, increased outpatient services Suicide Risk Level Suicide Risk Level: Moderate (q15 min suicide checks) (depression with suicide attempt prior to admission but mood improving, denies SI, feels safe in the hospital, able to safety contract and agrees to let nursing/staff know should they develop plan, intent or feel unable to remain safe. 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 Chief Complaint "I'm good, a little tired". Review of Systems Sleep Information Total Hours of Sleep: 9.25 Sleep Comments: Meal Information Percent Meal Consumed - Breakfast: 0 Percent Meal Consumed - Lunch: 80 Percent Meal Consumed - Dinner: 100 Nutrition Comment: pt. does not typically eat breakfast Subjective Subjective Patient was seen & assessed and interval progress reviewed with treatment team nursing and social work. Attending and engaging in groups. Mood is good. Denies SI. Likes the sertraline, no side effects from higher dose. Agrees to EKG later today. Denies any questions or concerns. Physical Exam Psychiatric Orientation: alert and oriented x 3 Apperance: appropriately dressed and appropriately groomed Eye Contact: + poor eye contact Motor Behavior: no abnormal motor movements Speech: + abnormal rate/rhythm/volume of speech (soft, brief) Affect: + constricted affect Mood: no depressed mood and no anxious mood Thought Process: goal directed thought process Thought Content: reality based without delusions Suicidal Thoughts: denies suicidal thoughts, denies suicidal plan and denies suicidal intent Homicidal Thoughts: denies homicidal thoughts Hallucinations: no auditory hallucinations and no visual hallucinations Cognition: recent memory grossly intact, remote memory grossly intact, attention grossly intact and language grossly intact Estimated Intelligence: consistent with education level Insight: + fair insight Judgement: + fair judgement Vital Signs (Past 24 Hours) Last Vital Signs Temp 37 C 03/10/22 06:55 Pulse 96 H 03/10/22 06:55 Resp 16 03/10/22 06:55 BP 117/77 03/10/22 06:55 Pulse Ox 98 03/09/22 06:39 O2 Del Method 03/09/22 06:39 O2 Flow Rate 0 03/05/22 18:15 Results & Data ([facility]) Current Inpatient Medications Current Inpatient Medications: Current Inpatient Medications Acetaminophen (Acetaminophen 325 Mg Tab) 650 mg PO Q4H PRN PRN Reason: Headache or Minor Fever Stop: 04/04/22 21:48 Al Hydrox/Mg Hydrox/Simethicone (Aluminum/Magnesium Susp 30 Ml Udc) 30 ml PO Q4H PRN PRN Reason: GI Upset Stop: 04/04/22 21:48 Bismuth Subsalicylate (Bismuth Subsalicylate Liqd 236 Ml) 15 ml PO PRN PRN PRN Reason: Loose Stool Stop: 04/04/22 21:48 Hydroxyzine HCl (Hydroxyzine Hcl 25 Mg Tab) 50 mg PO HSZ PRN PRN Reason: Insomnia Stop: 04/04/22 21:48 Hydroxyzine HCl (Hydroxyzine Hcl 25 Mg Tab) 25 mg PO Q4H PRN PRN Reason: Anxiety Stop: 04/04/22 21:48 Magnesium Hydroxide (Magnesium Hydroxide Susp 30 Ml Udc) 30 ml PO DAILY PRN PRN Reason: Constipation Stop: 04/04/22 21:48 Sertraline HCl (Sertraline Hcl 50 Mg Tablet) 50 mg PO QAM ABBEY Stop: 04/08/22 08:59 Last Admin: 03/10/22 09:06 Dose: 50 mg Sodium Chloride (Sodium Chloride 0.65% Na Soln 45 Ml ([place])) 1 - 2 sprays NA PRN PRN PRN Reason: Nasal Dryness/Congestion Stop: 04/04/22 21:48 Mental Health & Subst Abuse Tx Psychiatrist Name of Psychiatrist: Sonia Baxter Psychiatrist's Time of Appointment with Psychiatrist: 9:30am Psychiatric Appointment Comment: via Zoom Therapist Name of Therapist: Viridiana- on waiting list for therapy Auto [employer] 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 Carias Primary Care Time of Appointment with PCP: 10am Provider Appointment Comment: Tj Yang, MONA Winters Contact Information Discharge Discharge Address: [address] [place] [address] Julian Epperson, [place] [id number] (1) Suicide attempt by multiple drug overdose Encounter type: initial encounter Qualified Code(s): T50.912A - Poisoning by multiple unspecified drugs, medicaments and biological substances, intentional self-harm, initial encounter
[2022-03-11] MEDS: SERTRALINE HCL 50 MG TABLET PO SCH (09:20)
--- NOTE | 2022-03-11 10:08 | Discharge Summary ---
Date of Service March 11, 2022 History of Present Illness Orquidea presents for psychiatric admission for worsening depression and suicide attempt via overdose of ~6 tabs of Strattera and ~3 tabs of omeprazole as well as self-harming via cutting her arm with a knife. She broke up with her boyfriend 2 days ago and wonders if this in combination with too much stress and arguing with her mom lead to the attempt. She recalls having "visions" of jumping out of her boyfriend's car, or cutting herself or taking medications which started yesterday. The suicide thoughts and plans came on abruptly as she's never had these thoughts before. She recalls "a feeling of being cornered and all these emotions all at once". She had looked up what might happen if she took a bunch of her medications but denies finding or thinking that it could kill her. She recalls watching TV and then her mother yelled at her for having the candy bag on the ground where the dog could get it and then "that's when I had the visions" and cut herself with a kitchen knife and took the medications noting "I just acted and didn't think about taking them". After taking them she laid down and then texted her mom when she felt ill and came to the ED. She hasn't felt like herself recently, with anhedonia and more "walker". She identifies worsening mood over the last few months with hopelessness, lack of motivation, low energy, changes in sleep (excessive alternating with insomnia), decreased appetite, and increased irritability. She's also felt more anxious recently and worries about what other people think about her and "things I'm doing wrong". Expands that she doesn't feel like she's doing enough. Endorses social anxiety. No history of panic attacks. She is currently prescribed any Strattera for ADHD for a few years. She thinks it works "ok" and helps with concentration. Psychiatric ROS notable for no current nor history of symptoms of phil, psychosis, OCD, eating disorder nor self-harm. Physical Exam Vital Signs (Past 24 Hours) Last Vital Signs Temp 37.2 C 03/11/22 06:49 Pulse 102 H 03/11/22 06:50 Resp 16 03/11/22 06:49 BP 112/77 03/11/22 06:50 Pulse Ox 98 03/09/22 06:39 O2 Del Method 03/09/22 06:39 O2 Flow Rate 0 03/05/22 18:15 See admission H&P and DOD summary. Principal Diagnosis Major Depressive Disorder with anxious distress Psychiatric Data See daily stay summary. In short, patient was engaged with the social/therapeutic milieu of the unit, safety was maintained and the patient was cooperative with care. Medication changes included discontinuation of Strattera and initiation of sertraline for depression/anxiety and Vistaril prn for ins omnia and they tolerated this well. Given her history of prolonged QTc during childhood EKG was done after 2 days on sertraline 50mg and notable for normal QTc. A family session was held and safety plan was completed prior to discharge. She actively and insightfully participated in safety planning and in discussions about ways to seek support and recognizing warning signs and utilizing coping sk ills. Reviewed importance of seeking emergency care should SI intensify, worsen or should they feel unsafe in the future which they agree to do. On the day of discharge she stated her mood was "pretty good" and remained future-oriented including spending time with her family, having a [employer] movie marathon with family friends and engaging in aftercare appointments for psychiatry and eventually therapy. Day of Discharge Assessment Today the patient voices readiness for discharge. They note improvement in mood and anxiety. They deny thoughts of harm to self or others. Thoughts are organized and they are clinically improved from admission. There is no evidence of psychosis. They improved in the hospital with support and medication adjustm ents. They agree to take medications as prescribed and keep follow-up appointments. At the time of the discharge they are deemed to be stable and appropriate for outpatient level of care. They are not deemed to be at imminent risk of harm to self or others. They are aware of emergency and crisis services. Knows to call 911 or go to nearest emergency care center if in a crisis which cannot be handled as an outpatient. Transition of Care Transition Of Care Record: was reviewed with the patient Advance Directives Advance Directives Information Provided: Yes Advance Directives: No Mental Health Advance Directive: No Advance Directives on File: No Living Will: No Power of Notch Machine Operator: No Advance Directives Reason:: Declines as Mental Health Visit. Suicide Risk Level Suicide Risk Level Comments: Acute risk is low given improvement in mood and denial of SI, lack of access to lethal means, improvement in sleep, hopefulness and lessening of anxiety. Chronic risk is moderate given some non-modifiable risk factors: psychiatric co- morbid diagnoses, periods of impulsivity, prior attempt, emotional reactivity, limited social support, childhood trauma but also with protective factors including: strong family support, sense of responsibility to family and social supports, outpatient care in place, positive coping skills, positive problem solving, capacity to establish therapeutic alliance, willingness to engage with treatment, capacity for self-observation. Counseled on ways to reduce acute and chronic risk including engaging with outpatient providers (including therapy once off the waitlist), using [facility] resources to find a job/social media job titles, using safety plan if needed, utilizing supports, taking medication, and using coping skills. Modifiable risk factors of SI, anxiety and depression were addressed during hospitalization through development of new coping skills, family meeting, safety planning, and medication adjustments. 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 Relationships: Yes Supportive Family: Yes Good Rapport with Provider: Yes Discharge Data Lab Results 03/05/22 03/05/22 03/05/22 18:00 18:00 18:00 WBC RBC Hgb Hct MCV MCH MCHC RDW Std Deviation RDW Coeff of Radha Plt Count MPV Immature Gran % (Auto) Neut % (Auto) Lymph % (Auto) [place] % (Auto) Eos % (Auto) Baso % (Auto) Neut # (Auto) Lymph # (Auto) [place] # (Auto) Eos # (Auto) Baso # (Auto) Immature Gran # (Auto) Sodium Potassium Chloride Carbon Dioxide Anion Gap BUN Creatinine Est Cr Clr Drug Dosing Est GFR ( Amer) Est GFR (Non-Af Amer) BUN/Creatinine Ratio Glucose Calcium Total Bilirubin AST ALT Alkaline Phosphatase Total Protein Albumin Globulin Albumin/Globulin Ratio TSH HCG, Qual Urine Color Dark Yellow Urine Appearance Clear Urine pH 6.0 Ur Specific [place] 1.034 H Urine Protein Trace H Urine Glucose (UA) Negative Urine Ketones Trace H Urine Blood Negative Urine Nitrite Negative Urine Bilirubin Negative Urine Urobilinogen Negative Ur Leukocyte Esterase Negative Urine WBC (Auto) 5-10 H Urine RBC (Auto) 0-4 U Hyaline Cast (Auto) 1-5 U Epithel Cells (Auto) >30 H Urine Bacteria (Auto) Negative POC Ur Test NEG Salicylates Urine Opiates Screen Pos H U Codeine Confrm GC/MS Ur Morphine (GC/MS) Ur Hydrocodone (GC/MS) Ur Norhydrocodone Ur Noroxycodone Urine Oxycodone (GC/MS) U Oxymorphone GC/MS Ur Methadone, Qual Neg Ur Hydromorphone (GC/MS) Acetaminophen Urine Barbiturates Neg Ur Phencyclidine (PCP) Neg U Amphetamin/Meth Scrn Neg MDMA (Ecstasy) Screen Neg U Benzodiazepines Scrn Neg Ur Cocaine Metabolite Neg U Marijuana (THC) Screen Neg Drug Screen Comment Ethyl Alcohol mg/dL SARS-CoV-2, RNA, NAAT 03/05/22 03/05/22 03/05/22 18:00 18:10 18:10 WBC 8.36 RBC 4.55 Hgb 12.5 Hct 38.8 MCV 85.3 MCH 27.5 MCHC 32.2 RDW Std Deviation 40.4 RDW Coeff of Radha 13.0 Plt Count 228 MPV 10.8 Immature Gran % (Auto) 0.2 Neut % (Auto) 73.6 Lymph % (Auto) 21.3 [place] % (Auto) 3.3 Eos % (Auto) 1.1 Baso % (Auto) 0.5 Neut # (Auto) 6.15 Lymph # (Auto) 1.78 [place] # (Auto) 0.28 Eos # (Auto) 0.09 Baso # (Auto) 0.04 Immature Gran # (Auto) 0.02 Sodium 137 Potassium 3.8 Chloride 107 Carbon Dioxide 25 Anion Gap 5 BUN 12 Creatinine 0.66 Est Cr Clr Drug Dosing 108.3 Est GFR ( Amer) 145.3 Est GFR (Non-Af Amer) 125.4 BUN/Creatinine Ratio 18.2 Glucose 91 Calcium 9.0 Total Bilirubin 0.7 AST 9 L ALT 7 Alkaline Phosphatase 64 Total Protein 7.8 Albumin 4.8 Globulin 3.0 Albumin/Globulin Ratio 1.6 TSH HCG, Qual Urine Color Urine Appearance Urine pH Ur Specific [place] Urine Protein Urine Glucose (UA) Urine Ketones Urine Blood Urine Nitrite Urine Bilirubin Urine Urobilinogen Ur Leukocyte Esterase Urine WBC (Auto) Urine RBC (Auto) U Hyaline Cast (Auto) U Epithel Cells (Auto) Urine Bacteria (Auto) POC Ur Test Salicylates Urine Opiates Screen U Codeine Confrm GC/MS NEGATIVE Ur Morphine (GC/MS) NEGATIVE Ur Hydrocodone (GC/MS) NEGATIVE Ur Norhydrocodone NEGATIVE Ur Noroxycodone NEGATIVE Urine Oxycodone (GC/MS) NEGATIVE U Oxymorphone GC/MS NEGATIVE Ur Methadone, Qual Ur Hydromorphone (GC/MS) NEGATIVE Acetaminophen Urine Barbiturates Ur Phencyclidine (PCP) U Amphetamin/Meth Scrn MDMA (Ecstasy) Screen U Benzodiazepines Scrn Ur Cocaine Metabolite U Marijuana (THC) Screen Drug Screen Comment SEE NOTE Ethyl Alcohol mg/dL SARS-CoV-2, RNA, NAAT 03/05/22 03/05/22 03/05/22 18:10 18:10 18:10 WBC RBC Hgb Hct MCV MCH MCHC RDW Std Deviation RDW Coeff of Radha Plt Count MPV Immature Gran % (Auto) Neut % (Auto) Lymph % (Auto) [place] % (Auto) Eos % (Auto) Baso % (Auto) Neut # (Auto) Lymph # (Auto) [place] # (Auto) Eos # (Auto) Baso # (Auto) Immature Gran # (Auto) Sodium Potassium Chloride Carbon Dioxide Anion Gap BUN Creatinine Est Cr Clr Drug Dosing Est GFR ( Amer) Est GFR (Non-Af Amer) BUN/Creatinine Ratio Glucose Calcium Total Bilirubin AST ALT Alkaline Phosphatase Total Protein Albumin Globulin Albumin/Globulin Ratio TSH 1.520 HCG, Qual Urine Color Urine Appearance Urine pH Ur Specific [place] Urine Protein Urine Glucose (UA) Urine Ketones Urine Blood Urine Nitrite Urine Bilirubin Urine Urobilinogen Ur Leukocyte Esterase Urine WBC (Auto) Urine RBC (Auto) U Hyaline Cast (Auto) U Epithel Cells (Auto) Urine Bacteria (Auto) POC Ur Test Salicylates < 3.0 L Urine Opiates Screen U Codeine Confrm GC/MS Ur Morphine (GC/MS) Ur Hydrocodone (GC/MS) Ur Norhydrocodone Ur Noroxycodone Urine Oxycodone (GC/MS) U Oxymorphone GC/MS Ur Methadone, Qual Ur Hydromorphone (GC/MS) Acetaminophen < 3 L Urine Barbiturates Ur Phencyclidine (PCP) U Amphetamin/Meth Scrn MDMA (Ecstasy) Screen U Benzodiazepines Scrn Ur Cocaine Metabolite U Marijuana (THC) Screen Drug Screen Comment Ethyl Alcohol mg/dL < 10.0 SARS-CoV-2, RNA, NAAT 03/05/22 03/05/22 18:10 18:10 WBC RBC Hgb Hct MCV MCH MCHC RDW Std Deviation RDW Coeff of Radha Plt Count MPV Immature Gran % (Auto) Neut % (Auto) Lymph % (Auto) [place] % (Auto) Eos % (Auto) Baso % (Auto) Neut # (Auto) Lymph # (Auto) [place] # (Auto) Eos # (Auto) Baso # (Auto) Immature Gran # (Auto) Sodium Potassium Chloride Carbon Dioxide Anion Gap BUN Creatinine Est Cr Clr Drug Dosing Est GFR ( Amer) Est GFR (Non-Af Amer) BUN/Creatinine Ratio Glucose Calcium Total Bilirubin AST ALT Alkaline Phosphatase Total Protein Albumin Globulin Albumin/Globulin Ratio TSH HCG, Qual Negative Urine Color Urine Appearance Urine pH Ur Specific [place] Urine Protein Urine Glucose (UA) Urine Ketones Urine Blood Urine Nitrite Urine Bilirubin Urine Urobilinogen Ur Leukocyte Esterase Urine WBC (Auto) Urine RBC (Auto) U Hyaline Cast (Auto) U Epithel Cells (Auto) Urine Bacteria (Auto) POC Ur Test Salicylates Urine Opiates Screen U Codeine Confrm GC/MS Ur Morphine (GC/MS) Ur Hydrocodone (GC/MS) Ur Norhydrocodone Ur Noroxycodone Urine Oxycodone (GC/MS) U Oxymorphone GC/MS Ur Methadone, Qual Ur Hydromorphone (GC/MS) Acetaminophen Urine Barbiturates Ur Phencyclidine (PCP) U Amphetamin/Meth Scrn MDMA (Ecstasy) Screen U Benzodiazepines Scrn Ur Cocaine Metabolite U Marijuana (THC) Screen Drug Screen Comment Ethyl Alcohol mg/dL SARS-CoV-2, RNA, NAAT NEGATIVE Hospital Course (1) Suicide attempt by multiple drug overdose: (2) Major depression: (3) Post traumatic stress disorder (PTSD): (4) ADHD: (5) Autism spectrum disorder: Plan 03/10/22: Continue with sertraline. EKG this evening to assess QTc. 03/09/22: Continue with sertraline 50mg qd. 03/08/22: Increase sertraline to 50mg qd. 03/07/22: Start sertraline 25mg qd. 03/06/2022: The patient was admitted to the [facility] ([facility] inpatient mental health unit) on q15 min checks (behavioral with suicide precautions) for safety. The patient will participate in group, recreational, and milieu therapies and will be offered additional individual and family sessions as clinically appropriate. -Consider SSRI vs Wellbutrin -Coordinate with Dr. Baxter -Request [facility] records to confirm any prior medication trials Mental Health & Subst Abuse Tx Psychiatrist Name of Psychiatrist: [facility]- Dr. Baxter Psychiatrist's Time of Appointment with Psychiatrist: 9:30am Psychiatric Appointment Comment: via Zoom Therapist Name of Therapist: [facility]- on waiting list for therapy Care Associate Name of Care Associate: None Post Discharge Appointments Primary Care Physician Name Of Family Doctor/PCP: Yahir-will be seeing Dr. Carias Primary Care Time of Appointment with PCP: 10am Provider Appointment Comment: Tj Yang, [place] Win[place] Other #1: Name of Aftercare Appointment: [facility] [place] Office Phone Number of Aftercare Appointment: [phone] Aftercare Appointment Comment: Please follow-up with your [facility] coordinator for resources for employment. Contact Information Discharge Discharge Address: [facility] [address], [place] [address] Discharge Plan Discharge Items Patient Disposition: Home - Self-Care Reason For Visit: STATUS POST OD Discharge Diagnosis: Major Depressive Disorder Activity: Resume your previous activity Non-emergency contact: Primary Care Provider and Psychiatrist Call non-emergency contact if: you have any medication questions and your symptoms worsen Follow-up/Referrals: Fabi Chester, [Primary Care Provider] - Diet: Regular Addtl Attending Provider Instructions: SPECIAL CARE INSTRUCTIONS: 1. Follow through with your scheduled aftercare appointments. If unable to keep an appointment, please call to reschedule. 2. Take your medication only as prescribed. Medication should not be changed or stopped without the approval of your doctor. In the event of worsening symptoms or concerns about side effects, contact your doctor immediately. 3. Utilize new healthy coping skills, anger management skills, and stress management skills learned during your hospitalization. Journal feelings and process them with a support person. Identify stressors or situations that may result in relapse, deterioration or inappropriate behaviors and develop a plan to deal with those issues. 4. If your coping skills are ineffective and you are in crisis, contact your outpatient providers for direction. If unable to reach your providers, please call the [facility] CRISIS LINE AT , go to the [facility] walk-in center at [address], [address], [place], or go to the closest Emergency Room. 5. Avoid alcohol and un-prescribed drugs. 6. You have been provided with the Mental Health Advance Directives Pamphlet for your review. 7. Your condition is stable for discharge to outpatient level of care, but recovery is an ongoing process. Ifthoughts to harm yourself or others return, follow the safety plan developed during your stay. Planning for a safe return home includes securing weapons. Our treatment team recommends weaponsbe removed from the home until your outpatient provider reassesses your progress. In rare cases where the items themselvescannot be removed, guns and ammunitionshould be secured separatelyand keys stored by a reliable personoutside of the home. If you were admitted on an involuntary commitment, the police or other legal authorities may be involved in this process. AFTERCARE APPOINTMENTS: * Please call your insurance company prior to your scheduled appointment to confirm your aftercare providers are covered. Take your insurance information to your appointments. WHO TO CALL AND WHEN: Medical Emergencies: For questions or emergencies related to your hospital stay, please contact the Inpatient Behavioral Health Unit at [phone]. A heading and priming tool setter is on-call 18/09 for the Behavioral Health Unit for emergencies Suicide and Crisis [place] Lifeline: 988 At any time you feel your situation is an emergency, you may also call 911 immediately. Pending Studies at Discharge: No Stand-Alone Forms: My [facility] Medications and DC Order Prescriptions: New hydroxyzine HCl 50 mg tablet 50 mg PO HS PRN (Reason: insomnia/anxiety) 30 Days Qty: 30 0RF sertraline 50 mg Tablet 50 mg PO QAM 30 Days Qty: 30 0RF Continued omeprazole 20 mg Capsule,Delayed Release(Dr/Ec) 20 mg PO DAILY Discontinued atomoxetine [Strattera] 100 mg Capsule 100 mg PO QAM Discharge Orders: Discharge Order (Routine); Ordered 03/11/22 Ordered By: Hailey Delvalle Admission Data Admit Date/Time: 03/05/22 21:49 Attending Provider: Hailey Delvalle Admit Provider: Hailey Delvalle Primary Care Provider: Fabi Chester Other Interventions: Discharge Summary Assessment (RN) Last Done: 03/11/22 10:37 PSY Interdisciplinary Discharge Planning Last Done: 03/11/22 10:37 Coding Level of Care Code 48212 D/C day mgmt > 30 min Diagnoses Suicide attempt by multiple drug overdose T50.912A Encounter type: initial encounter Major depression F32.9 Post traumatic stress disorder (PTSD) F43.10 ADHD F90.9 Autism spectrum disorder F84.0 Time Spent (min) 35
--- NOTE | 2022-03-12 20:53 | Electrocardiogram Report ---
Test Reason : Blood Pressure : / mmHG Vent. Rate : 086 BPM Atrial Rate : 086 BPM P-R Int : 128 ms QRS Dur : 090 ms QT Int : 386 ms P-R-T Axes : 063 067 055 degrees QTc Int : 461 ms Normal sinus rhythm with sinus arrhythmia Normal ECG When compared with ECG of 05-MAR-2022 20:04, No significant change was found Confirmed by Mario Dinh ([id number]) on 03/12/2022 8:53:23 PM Referred By: REFERRED SELF Confirmed By:Mario Dinh
== END 2022-03-11 11:05 | disposition home or self-care (01) | DRG 918 ==
LOC: ED 17:37 → 3S 21:49